=== PATIENT | female | born 1980 | race Native Hawaiian/Other Pacific Islander ===

== ENCOUNTER 2017-06-20 19:33 | Emergency (ER) | payer SELFPAY ==
[2017-06-20] MEDS ORDERED: Sodium Chloride 0.9% 1,000 ML IV ONE (21:51)
[2017-06-20] MEDS ORDERED: Sodium Chloride 0.9% 1,000 ML ONE ×2 (22:03→22:18)
[2017-06-20 22:07] LABS: URINE BILIRUBIN NEGATIVE (NEGATIVE); URINE BLOOD NEGATIVE (NEGATIVE); URINE COLOR Straw (YELLOW); URINE GLUCOSE (UA) NORMAL (Normal); URINE KETONE NEGATIVE (NEGATIVE); URINE LEUKOCYTE ESTERASE TRACE Leu/uL (Negative); URINE PROTEIN NEGATIVE (NEGATIVE); URINE UROBILINOGEN NORMAL mg/dL (0.2-1.0); WBC URINE < 1 /hpf (0-5)
[2017-06-20 22:25] LABS: BASO # 0.1 K/uL (0.0-0.2); BASO % 0.9 % (0.0-2.0); EOS # 0.2 K/uL (0.0-0.7); EOS % 1.4 % (0.0-4.0); HEMATOCRIT 33.9 % (34.0-47.0); LYMPH # 3.3 K/uL (1.0-4.3); LYMPH % 27.1 % (20.0-40.0); MEAN CELL VOLUME 75.5 fL (81.0-99.0); MEAN CORPUSCULAR HEMOGLOBIN 25.1 pg (27.0-31.0); MEAN CORPUSCULAR HGB CONC 33.3 g/dL (33.0-37.0); MEAN PLATELET VOLUME 7.5 fL (7.2-11.7); MONO # 0.8 K/uL (0.0-0.8); NRBC % 0.1 % (0.0-2.0); WHITE BLOOD COUNT 12.1 K/uL (4.8-10.8)
[2017-06-20 22:38] LABS: CHLORIDE 100 mmol/L (98-107); POTASSIUM 3.9 mmol/L (3.6-5.2); SODIUM 140 mmol/L (132-148)
--- NOTE | 2017-06-20 22:39 | C.PDOC ---
History Of Present Illness <Franki Hollis - Last Filed: 06/21/17 00:06> <Gabby Cramer - Last Filed: 06/21/17 02:54> 37 year old female with a history of ectopic presents to the ED with complaints of RUQ abdominal pain and neck swelling. Patient notes abdominal pain began a few days ago and neck swelling has been occurring for two weeks. She denies fever or other complaints. (Franki Hollis) History Per: Patient History/Exam Limitations: no limitations Onset/Duration Of Symptoms: Days (few days of abdominal pain ), Persistent (2 weeks of neck swelling) Current Symptoms Are (Timing): Still Present Location Of Pain/Discomfort: RUQ Radiation Of Pain To:: None Quality Of Discomfort: "Pain" Associated Symptoms: denies: Fever, Chills, Nausea, Vomiting Exacerbating Factors: None Alleviating Factors: None Recent travel outside of the [place]: No Abnormal Vaginal Bleeding: No <Franki Hollis - Last Filed: 06/21/17 00:06> <Gabby Cramer - Last Filed: 06/21/17 02:54> Time Seen by Provider: 06/20/17 21:44 Chief Complaint (Nursing): Abdominal Pain Past Medical History Reviewed: Historical Data, Nursing Documentation, Vital Signs Family History: States: Unknown Family Hx - Social History Hx Alcohol Use: No Hx Substance Use: No - Immunization History Hx Tetanus Toxoid Vaccination: No Hx Influenza Vaccination: No Hx Pneumococcal Vaccination: No <Franki Hollis - Last Filed: 06/21/17 00:06> Vital Signs: Last Vital Signs Temp 98.1 F 06/21/17 00:41 Pulse 79 06/21/17 02:09 Resp 18 06/21/17 02:09 BP 111/60 06/21/17 02:09 Pulse Ox 97 06/21/17 02:09 - [facility] Procedures ASPIRAT CURET-POST DELIV (05/25/15) LAPAROSCOPY (05/25/15) Review Of Systems Constitutional: Negative for: Fever, Chills Cardiovascular: Negative for: Chest Pain, Palpitations Respiratory: Negative for: Cough, Shortness of Breath Gastrointestinal: Positive for: Abdominal Pain. Negative for: Nausea, Vomiting , Diarrhea Musculoskeletal: Positive for: Other (neck swelling ) Skin: Negative for: Rash <Franki Hollis - Last Filed: 06/21/17 00:06> Physical Exam - Physical Exam Appears: Non-toxic, No Acute Distress Skin: Warm, Dry Head: Atraumatic, Normacephalic Eye(s): bilateral: Normal Inspection Oral Mucosa: Moist Neck: Normal ROM, Supple, Other (mild thyromegaly ) Chest: Symmetrical, No Deformity Cardiovascular: Rhythm Regular, No Murmur Respiratory: Normal Breath Sounds, No Rales, No Rhonchi, No Wheezing Gastrointestinal/Abdominal: Soft, Tenderness (RUQ tenderness), No Distention, No Guarding, No Rebound Extremity: Normal ROM, No Tenderness Neurological/Psych: Oriented x3 <Franki Hollis - Last Filed: 06/21/17 00:06> ED Course And Treatment - Laboratory Results Result Diagrams: 06/20/17 22:20 06/20/17 22:20 O2 Sat by Pulse Oximetry: 100 (room air ) - CT Scan/US US Abdomen Complete Other Rad Studies (CT/US): Read By Radiologist, Radiology Report Reviewed CT/US Interpretation: FINDINGS: Liver: Normal echogenicity. No mass. No intrahepatic bile duct dilatation. Gallbladder: No gallstones. No wall thickening. No pericholecystic fluid. No sonographic Gu's. sign. Common bile duct: No dilatation. No stones. Pancreas: Unremarkable as visualized. Kidneys: Normal echogenicity. No hydronephrosis. Spleen: No splenomegaly. Aorta: Unremarkable as visualized. Inferior vena cava: Unremarkable. Free fluid: No significant free fluid. IMPRESSION: 1. No acute findings. Progress Note: Labs and blood work were ordered. Patient was given Protonix and IV fluids. <Franki Hollis - Last Filed: 06/21/17 00:06> - Laboratory Results Result Diagrams: 06/20/17 22:20 06/20/17 22:20 <Gabby Cramer - Last Filed: 06/21/17 02:54> Disposition <Franki Hollis - Last Filed: 06/21/17 00:06> Counseled Patient/Family Regarding: Studies Performed, Diagnosis, Need For Followup - Disposition Disposition Time: 01:00 <Gabby Cramer - Last Filed: 06/21/17 02:54> - Disposition Referrals: [facility] [Outside] [facility] [Outside] Disposition: HOME/ ROUTINE Condition: FAIR Instructions: Abdominal Pain (ED), Thyroid Nodules (ED) Forms: [employer] (Egyptian) - Clinical Impression Clinical Impression: Abdominal pain, Thyroid nodule - Scribe Statement The provider has reviewed the documentation as recorded by the Scribe <Franki Hollis - Last Filed: 06/21/17 00:06> <Gabby Cramer - Last Filed: 06/21/17 02:54> - Scribe Statement Janine Lara All medical record entries made by the Scribe were at my direction and personally dictated by me. I have reviewed the chart and agree that the record accurately reflects my personal performance of the history, physical exam, medical decision making, and the department course for this patient. I have also personally directed, reviewed, and agree with the discharge instructions and disposition. (Franki Hollis)
[2017-06-20 22:40] LABS: BILIRUBIN,TOTAL 0.9 mg/dL (0.2-1.3); GFR AFRICAN-AMERICAN > 60
[2017-06-20 22:41] LABS: ALB/GLOB RATIO 1.3 (1.0-2.1); ALKALINE PHOSPHATASE 68 U/L (38-126); ALT/SGPT 27 U/L (9-52); AST/SGOT 16 U/L (14-36); BLOOD UREA NITROGEN 7 mg/dL (7-17); CARBON DIOXIDE 23 mmol/L (22-30); GLUCOSE,RANDOM 86 mg/dL (65-105); TOTAL PROTEIN 7.7 g/dL (6.3-8.3)
[2017-06-20] MEDS ORDERED: Iodixanol 320 MG/ML 100 ML BOTTLE IV ONE (22:56)
--- NOTE | 2017-06-21 02:26 | CT ---
EXAM: CT Neck With Intravenous Contrast CLINICAL HISTORY: 37 years old, female; Pain; Throat pain and other: Swelling area at neck since two days ago TECHNIQUE: Axial computed tomography images of the neck with intravenous contrast. All CT scans at this facility use one or more dose reduction techniques, viz.: automated exposure control; ma/kV adjustment per patient size (including targeted exams where dose is matched to indication; i.e. head); or iterative reconstruction technique. Coronal and sagittal reformatted images were created and reviewed. CONTRAST: 100 mL of [id number] administered intravenously. COMPARISON: No relevant prior studies available. FINDINGS: Nasopharynx: Unremarkable. Oropharynx: No significant tonsillar enlargement. No peritonsillar abscess. Hypopharynx: Unremarkable. Larynx: Unremarkable. Normal epiglottis. Trachea: Unremarkable. Retropharyngeal space: Unremarkable. Submandibular/parotid glands: Unremarkable. Glands are normal in size. Thyroid: 1.2 x 1.0 x 0.4 cm cyst or nodule within isthmus. Bones/joints: No acute fracture. Soft tissues: Unremarkable. Vasculature: No acute findings. Lymph nodes: No pathologically enlarged lymph nodes. Lung apices: Unremarkable as visualized. IMPRESSION: 1. No acute findings. 2. Thyroid nodule. Followup as clinically warranted.
[2017-06-21 03:09] VITALS: BP 167/76; PULSE 76; RESP 20; TEMP 97.8; O2SAT 98
--- NOTE | 2017-06-21 10:23 | US ---
HISTORY: ruq pain COMPARISON: None available. TECHNIQUE: Sonographic evaluation of the abdomen. FINDINGS: Examination limited by bowel gas. LIVER: Measures 16.1 cm in sagittal dimension and appears unremarkable. No focal hepatic mass identified. The main portal vein appears patent with normal directional flow. No intrahepatic bile duct dilatation. GALLBLADDER: No gallstones. No gallbladder wall thickening. Negative sonographic Gu's sign as assessed by the national accounts recruiter. COMMON BILE DUCT: Measures 4 mm. No stones. No dilatation. PANCREAS: Not well visualized. RIGHT KIDNEY: Measures 10.3 x 4.2 x 4.4 cm. No obstructing calculus or hydronephrosis identified. LEFT KIDNEY: Measures 10.7 x 4.5 x 4.9 cm. No obstructing calculus or hydronephrosis identified. SPLEEN: Measures approximately 10.6 cm. AORTA: Limited views appear unremarkable. IVC: Limited views appear unremarkable. OTHER FINDINGS: None. IMPRESSION: Unremarkable abdominal sonogram with findings as above. Preliminary impression was provided by virtual radiologic.
== END 2017-06-21 03:09 | disposition home or self-care (01) ==
LOC: C.ER 19:33
DX: E04.1 Nontoxic single thyroid nodule (principal); R10.9 Unspecified abdominal pain
CPT/HCPCS: 70491; 76700; 80053; 81001; 83690; 84439; 84443; 84703; 85025; 85610; 85730; 96361; 96374; 99285; C9113; J7040; Q9967

== ENCOUNTER 2018-01-18 17:25 | Emergency (ER) | payer OTHER ==
[2018-01-18 17:42] VITALS: O2SAT 100
[2018-01-18 18:29] LABS: BASO # 0.1 K/uL (0.0-0.2); BASO % 0.5 % (0.0-2.0); EOS # 0.3 K/uL (0.0-0.7); HEMOGLOBIN 11.4 g/dL (11.0-16.0); LYMPH # 3.3 K/uL (1.0-4.3); LYMPH % 23.5 % (20.0-40.0); MEAN CELL VOLUME 75.3 fL (81.0-99.0); MEAN CORPUSCULAR HEMOGLOBIN 25.3 pg (27.0-31.0); MEAN CORPUSCULAR HGB CONC 33.6 g/dL (33.0-37.0); MEAN PLATELET VOLUME 7.5 fL (7.2-11.7); MONO # 1.1 K/uL (0.0-0.8); MONO % 7.9 % (0.0-10.0); NEUT # 9.3 K/uL (1.8-7.0); NEUT % 66.1 % (50.0-75.0); NRBC % 0.3 % (0.0-2.0); RBC 4.52 Mil/uL (3.80-5.20); WHITE BLOOD COUNT 14.1 K/uL (4.8-10.8)
[2018-01-18 18:41] LABS: D DIMER < 200 ng/mlDDU (0-243); INR 1.1; PARTIAL THROMBOPLASTIN TIME 37 SECONDS (21-34); PROTHROMBIN TIME 12.4 SECONDS (9.7-12.2)
[2018-01-18 18:42] LABS: ALB/GLOB RATIO 1.1 (1.0-2.1); ALBUMIN 4.6 g/dL (3.5-5.0); ALT/SGPT 9 U/L (9-52); AST/SGOT 17 U/L (14-36); BLOOD UREA NITROGEN 8 mg/dL (7-17); CALCIUM 9.3 mg/dl (8.6-10.4); GFR AFRICAN-AMERICAN > 60; GFR NON-AFRICAN AMERICAN > 60; LIPASE 99 U/L (23-300)
[2018-01-18 18:56] LABS: CK-MB < 0.22 ng/mL (0.0-3.38)
[2018-01-18 19:25] LABS: SQUAMOUS EPITHIAL < 1 /hpf (0-5); URINE BILIRUBIN NEGATIVE (NEGATIVE); URINE BLOOD NEGATIVE (NEGATIVE); URINE CLARITY Clear (Clear); URINE COLOR Colorless (YELLOW); URINE GLUCOSE (UA) NORMAL (Normal); URINE LEUKOCYTE ESTERASE NEG Leu/uL (Negative); URINE PROTEIN NEGATIVE (NEGATIVE); URINE UROBILINOGEN NORMAL mg/dL (0.2-1.0)
[2018-01-18 19:26] LABS: HCG,QUALITATIVE URINE NEGATIVE (NEGATIVE)
[2018-01-18 19:30] VITALS: RESP 18
[2018-01-18 19:38] LABS: BARBITURATES, UR NEGATIVE (NEGATIVE); BENZODIAZEPINES, UR NEGATIVE (NEGATIVE); OPIATES, UR NEGATIVE (NEGATIVE); PHENCYCLIDINE, UR NEGATIVE (NEGATIVE)
--- NOTE | 2018-01-18 19:51 | C.PDOC ---
Time Seen by Provider: 01/18/18 18:12 Chief Complaint (Nursing): Chest Pain History Per: Patient Onset/Duration Of Symptoms: Hrs (1), Intermittent Episodes (lasting around 2 minutes) Current Symptoms Are (Timing): Gone Severity: Moderate Quality: "Pain" Associated Symptoms: denies: Nausea, Dyspnea, Diaphoresis, Syncope Modifying Factors: Other Indicated Below Exacerbating Factors: Movement Alleviating Factors: None Additional History Per: Prior Records Past Medical History Reviewed: Historical Data, Nursing Documentation, Vital Signs Vital Signs: Last Vital Signs Temp 98.3 F 01/18/18 19:29 Pulse 79 01/18/18 19:29 Resp 18 01/18/18 19:29 BP 116/75 01/18/18 19:29 Pulse Ox 100 01/18/18 19:29 - Medical History PMH: No Chronic Diseases Surgical History: No Surg Hx - [facility] Procedures ASPIRAT CURET-POST DELIV (05/25/15) LAPAROSCOPY (05/25/15) Family History: States: Unknown Family Hx - Social History Hx Tobacco Use: No Hx Alcohol Use: No Hx Substance Use: No - Immunization History Hx Tetanus Toxoid Vaccination: No Hx Influenza Vaccination: No Hx Pneumococcal Vaccination: No Review Of Systems Except As Marked, All Systems Reviewed And Found Negative. Constitutional: Negative for: Fever Respiratory: Negative for: Cough, Shortness of Breath, Hemoptysis Gastrointestinal: Negative for: Vomiting, Diarrhea Genitourinary: Negative for: Dysuria, Hematuria Musculoskeletal: Negative for: Neck Pain, Leg Pain Skin: Negative for: Rash Neurological: Negative for: Weakness, Numbness Physical Exam - Physical Exam Appears: Non-toxic, No Acute Distress Skin: Normal Color, Warm, Dry, No Rash Head: Atraumatic, Normacephalic Eye(s): bilateral: Normal Inspection, PERRL, EOMI Neck: Normal ROM, Supple Chest: Symmetrical, No Deformity, No Tenderness, No Subcutaneous Emphysema Cardiovascular: Rhythm Regular Respiratory: Normal Breath Sounds, No Accessory Muscle Use Gastrointestinal/Abdominal: Soft, No Tenderness Back: No CVA Tenderness Extremity: Normal ROM, No Pedal Edema, No Calf Tenderness Neurological/Psych: Oriented x3, Normal Motor, Normal Sensation ED Course And Treatment - Laboratory Results Result Diagrams: 01/18/18 18:26 01/18/18 18:26 Urine POC: Negative ECG: Interpreted By Me, Viewed By Me ECG Rhythm: Sinus Rhythm, Nonspecific Changes ECG Interpretation: No Acute Changes Rate From EC O2 Sat by Pulse Oximetry: 100 Pulse Ox Interpretation: Normal - Radiology CXR: Interpreted by Me, Viewed By Me CXR Interpretation: Yes: No Acute Disease Progress Note: Pt is asymptomatic in the ED. Reassessment Condition: Improved Progress - Interventions Interventions:: Observation - Medications Administered Oral: H-2 felipe - Data Reviewed Data Reviewed: Lab, Diagnostic imaging, EKG, Old records - Patient Status Patient status: Completely improved - Continuity of Care Discussed patient case with:: Patient, ED Nurse - Patient Plan Patient Plan: Discharge, F/U with PCP Disposition Counseled Patient/Family Regarding: Studies Performed, Diagnosis, Need For Followup - Disposition Referrals: at [facility] [Outside] Disposition: HOME/ ROUTINE Disposition Time: 19:52 Condition: STABLE Additional Instructions: Follow up in the clinic for further evaluation and treatment. Return to the ER if you develop shortness of breath, chest pain that persists, worsening of symptoms or if you have any other concerns. Instructions: Chest Pain (DC) - Clinical Impression Clinical Impression: Chest pain
[2018-01-18 20:14] VITALS: BP 137/79; PULSE 80; TEMP 98.1
--- NOTE | 2018-01-19 07:02 | RAD ---
Chest x-ray two views History: Chest pain. Comparison: None available. Findings: Biapical pleural thickening with upper lobe granulomatous changes. Diffuse increased interstitial lung markings. Bibasilar nodular densities at the lung bases may represent nipple shadows. Correlation with nipple markers may be helpful. Additional small nodular density at the lateral aspect of the left lung base may represent confluence of shadows with ribs and vessels. Heart size within normal limits. Degenerative changes in the spine. Impression: Biapical pleural thickening with upper lobe granulomatous changes. Diffuse increased interstitial lung markings. Bibasilar nodular densities at the lung bases may represent nipple shadows. Correlation with nipple markers may be helpful. Additional small nodular density at the lateral aspect of the left lung base may represent confluence of shadows with ribs and vessels.
--- NOTE | 2018-01-19 21:26 | CARD ---
APPROVED REPORT EKG Measurement Heart [id number] <Conclusion> Normal sinus rhythm Possible Anterior infarct, age undetermined Abnormal ECG
== END 2018-01-18 20:18 | disposition home or self-care (01) ==
LOC: C.ER 17:25
DX: R07.9 Chest pain, unspecified (principal)

== ENCOUNTER 2018-04-30 10:30 | Emergency (ER) | payer OTHER ==
[2018-04-30 10:34] VITALS: TEMP 98.8
[2018-04-30] MEDS ORDERED: Sodium Chloride 0.9% 1,000 ML IV STA (11:29)
[2018-04-30] MEDS ORDERED: Sodium Chloride 0.9% 1,000 ML ONE (11:51)
[2018-04-30 11:53] LABS: BASO # 0.1 K/uL (0.0-0.2); BASO % 0.6 % (0.0-2.0); EOS # 0.1 K/uL (0.0-0.7); EOS % 0.8 % (0.0-4.0); HEMOGLOBIN 11.1 g/dL (11.0-16.0); LYMPH # 2.5 K/uL (1.0-4.3); LYMPH % 24.8 % (20.0-40.0); MEAN CELL VOLUME 74.9 fL (81.0-99.0); MEAN CORPUSCULAR HEMOGLOBIN 25.1 pg (27.0-31.0); MEAN CORPUSCULAR HGB CONC 33.5 g/dL (33.0-37.0); MEAN PLATELET VOLUME 7.8 fL (7.2-11.7); MONO # 0.6 K/uL (0.0-0.8); MONO % 6.3 % (0.0-10.0); NEUT # 6.9 K/uL (1.8-7.0); NEUT % 67.5 % (50.0-75.0); NRBC % 0.2 % (0.0-2.0); RBC 4.43 Mil/uL (3.80-5.20); RED CELL DISTRIBUTION WIDTH 17.9 % (11.5-14.5); WHITE BLOOD COUNT 10.3 K/uL (4.8-10.8)
[2018-04-30 12:02] LABS: HCG,QUALITATIVE URINE NEGATIVE (NEGATIVE)
[2018-04-30 12:08] LABS: SQUAMOUS EPITHIAL < 1 /hpf (0-5); URINE BILIRUBIN NEGATIVE (NEGATIVE); URINE BLOOD NEGATIVE (NEGATIVE); URINE CLARITY Clear (Clear); URINE COLOR Straw (YELLOW); URINE GLUCOSE (UA) NORMAL (Normal); URINE LEUKOCYTE ESTERASE NEG Leu/uL (Negative); URINE PROTEIN NEGATIVE (NEGATIVE); URINE UROBILINOGEN NORMAL mg/dL (0.2-1.0)
[2018-04-30 12:19] LABS: ALB/GLOB RATIO 1.3 (1.0-2.1); ALBUMIN 4.7 g/dL (3.5-5.0); ALT/SGPT 23 U/L (9-52); AST/SGOT 30 U/L (14-36); BLOOD UREA NITROGEN 6 mg/dL (7-17); CALCIUM 9.7 mg/dl (8.6-10.4); GFR AFRICAN-AMERICAN > 60; GFR NON-AFRICAN AMERICAN > 60
--- NOTE | 2018-04-30 13:17 | US ---
Date of service: 04/30/2018 PROCEDURE: Pelvic ultrasound. HISTORY: Pelvic Pain COMPARISON: Comparison made with prior pelvic ultrasound 05/25/2015. TECHNIQUE: Transabdominal/transvaginal sonographic evaluation of the pelvis performed. FINDINGS: The uterus is anteverted measuring approximately 9.4 x 5.4 x 7.2 cm. No obvious uterine masses are identified. Endometrium measures 1.2 cm. Cervix measures 2.65 cm. No free fluid seen in the cul sac. Right ovary measures 3.1 x 2.0 x 2.9 cm. Right ovary exhibits arterial flow The left ovary measures 3.3 x 1.5 x 3.2 cm. Left ovary exhibits arterial flow IMPRESSION: Unremarkable pelvic ultrasound.
[2018-04-30 13:48] VITALS: O2SAT 100
--- NOTE | 2018-04-30 14:27 | C.PDOC ---
Time Seen by Provider: 04/30/18 10:41 Chief Complaint (Nursing): Female Genitourinary Past Medical History Vital Signs: Last Vital Signs Temp 98.8 F 04/30/18 10:32 Pulse 71 04/30/18 13:48 Resp 16 04/30/18 13:48 BP 116/72 04/30/18 13:48 Pulse Ox 100 04/30/18 13:48 - [facility] Procedures ASPIRAT CURET-POST DELIV (05/25/15) LAPAROSCOPY (05/25/15) Family History: States: Unknown Family Hx - Social History Hx Tobacco Use: No Hx Alcohol Use: No Hx Substance Use: No - Immunization History Hx Tetanus Toxoid Vaccination: No Hx Influenza Vaccination: No Hx Pneumococcal Vaccination: No ED Course And Treatment - Laboratory Results Result Diagrams: 04/30/18 11:39 04/30/18 11:39 O2 Sat by Pulse Oximetry: 100 Disposition - Disposition Disposition: HOME/ ROUTINE Disposition Time: 14:24 Condition: STABLE Additional Instructions: Follow up with OBGYN within 1-2 days. Return to ED if feel worse. Instructions: Acute Pelvic Pain (DC) - Clinical Impression Clinical Impression: Pelvic pain
--- NOTE | 2018-04-30 14:50 | C.PDOC ---
History Of Present Illness 38-year-old female, presents to the emergency department with complaints of pelvic cramps and an episode of vaginal bleeding four days ago. Patient states her LMP was two weeks ago, and she was concerned due to her symptoms, prompting visit. She denies any nausea/vomiting, fever, chills, or any other associated symptoms. No other complaints at this time. Time Seen by Provider: 04/30/18 10:41 Chief Complaint (Nursing): Female Genitourinary History Per: Patient History/Exam Limitations: no limitations Current Symptoms Are (Timing): Still Present Severity: Moderate Past Medical History Reviewed: Historical Data, Nursing Documentation, Vital Signs Vital Signs: Last Vital Signs Temp 98.8 F 04/30/18 10:32 Pulse 63 04/30/18 15:06 Resp 18 04/30/18 15:06 BP 111/75 04/30/18 15:06 Pulse Ox 100 04/30/18 15:14 - [facility] Procedures ASPIRAT CURET-POST DELIV (05/25/15) LAPAROSCOPY (05/25/15) Family History: States: No Known Family Hx - Social History Hx Tobacco Use: No Hx Alcohol Use: No Hx Substance Use: No - Immunization History Hx Tetanus Toxoid Vaccination: No Hx Influenza Vaccination: No Hx Pneumococcal Vaccination: No Review Of Systems Except As Marked, All Systems Reviewed And Found Negative. Constitutional: Negative for: Fever Cardiovascular: Negative for: Chest Pain Respiratory: Negative for: Shortness of Breath Gastrointestinal: Negative for: Nausea, Vomiting Genitourinary: Positive for: Vaginal Discharge. Negative for: Dysuria, Hematuria Musculoskeletal: Negative for: Hand Pain Physical Exam - Physical Exam Appears: Non-toxic, No Acute Distress Skin: Normal Color, Warm, Dry, No Rash Head: Atraumatic, Normacephalic Eye(s): bilateral: Normal Inspection Nose: Normal Oral Mucosa: Moist Lips: Normal Appearing Neck: Normal ROM Chest: Symmetrical Cardiovascular: Rhythm Regular, No Murmur Respiratory: Normal Breath Sounds, No Accessory Muscle Use Extremity: Normal ROM, No Deformity, No Swelling Neurological/Psych: Oriented x3, Normal Speech ED Course And Treatment - Laboratory Results Result Diagrams: 04/30/18 11:39 04/30/18 11:39 O2 Sat by Pulse Oximetry: 100 Pulse Ox Interpretation: Normal (RA) - CT Scan/US us Other Rad Studies (CT/US): Read By Radiologist, Radiology Report Reviewed CT/US Interpretation: Accession No. : [id number]. Patient Name / ID : MICHELLE ALMONTE / [id number]. Exam Date : 04/30/2018 12:28:06 ( Approved ). Study Comment : Sex / Age : F / 38Y. Creator : Gregorio Weldon MD. Dictator : Continuous Improvement Coach : Metal Moulder : Gregorio Weldon MD. Approver2 : Report Date : 04/30/2018 13:15:48. My Comment : . Date of service: 2017. PROCEDURE: Pelvic ultrasound. HISTORY: Pelvic Pain. COMPARISON: Comparison made with prior pelvic ultrasound 05/25/2015. TECHNIQUE: Transabdominal/transvaginal sonographic evaluation of the pelvis performed. FINDINGS: The uterus is anteverted measuring approximately 9.4 x 5.4 x 7.2 cm. No obvious uterine masses are identified. Endometrium measures 1.2 cm. Cervix measures 2.65 cm. No free fluid seen in the cul sac. Right ovary measures 3.1 x 2.0 x 2.9 cm. Right ovary exhibits arterial flow. The left ovary measures 3.3 x 1.5 x 3.2 cm. Left ovary exhibits arterial flow. IMPRESSION: Unremarkable pelvic ultrasound. Progress Note: Patient is currentlu asymptomatic, no vaginal bleeding, no pelvic pain, unremarkable pelvic US. Paatient is stable to be d/c home with OBGYN follow up. Disposition - Disposition Disposition: HOME/ ROUTINE Disposition Time: 14:24 Condition: STABLE Additional Instructions: Follow up with OBGYN within 1-2 days. Return to ED if feel worse. Instructions: Acute Pelvic Pain (DC) Forms: [employer] (Kyrgyz) - Clinical Impression Clinical Impression: Pelvic pain - Scribe Statement The provider has reviewed the documentation as recorded by the Scribe (Nhung Hernandez) All medical record entries made by the Scribe were at my direction and personally dictated by me. I have reviewed the chart and agree that the record accurately reflects my personal performance of the history, physical exam, medical decision making, and the department course for this patient. I have also personally directed, reviewed, and agree with the discharge instructions and disposition.
[2018-04-30 15:08] VITALS: BP 111/75; PULSE 63; RESP 18
== END 2018-04-30 15:08 | disposition home or self-care (01) ==
LOC: C.ER 10:30
DX: R10.2 Pelvic and perineal pain (principal)
CPT/HCPCS: 76830; 76856; 80053; 81001; 84703; 85025; 96360; 99285; J7030